=== PATIENT | male | born 1960 | race Caucasian/White ===

== ENCOUNTER 2017-03-01 23:28 | Emergency (ER) | payer MEDICAID ==
[~2017-03-01] VITALS: Ht 175.3 cm; Wt 74.8 kg
[2017-03-01] MEDS ORDERED: ABILIFY2 MG ORAL (23:31)
[2017-03-01] MEDS ORDERED: LISINOPRIL5 MG ORAL (23:31)
--- NOTE | 2017-03-01 23:36 | Emergency Room Report ---
History of Present Illness General Chief Complaint: Abdominal Pain Source: Patient, EMS Present Illness HPI A 56-year-old male who said he has a history of cirrhosis. He said he tripped and fell and twisted his his back and hurt his abdomen. Denies any fever or chills. He call 911 from a nearby restaurant. No other complaint. Pain is 9/ 10. Worse with movement. Allergies: Coded Allergies: No Known Allergies (Unverified , 03/01/17) Patient History Past Medical History: see triage record, old chart reviewed Past Surgical History: other Pertinent Family History: none Social History: Reports: alcohol use Immunizations: other Reviewed Nursing Documentation: PMH: Agreed, PSxH: Agreed Nursing Documentation-PMH Hx Hypertension: Yes Review of Systems Eye: Denies: eye pain, blurred vision ENT: Denies: ear pain, nose congestion, throat swelling Respiratory: Denies: cough, shortness of breath Cardiovascular: Denies: chest pain, palpitations Gastrointestinal: Reports: abdominal pain, Denies: diarrhea, nausea, vomiting Musculoskeletal: Denies: back pain, joint pain Skin: Denies: rash Neurological: Denies: headache, numbness Endocrine: Denies: increased thirst, increased urine Hematologic/Lymphatic: Denies: easy bruising All Other Systems: negative except mentioned in HPI Physical Exam Vital Signs Date Time Temp Pulse Resp B/P (MAP) Pulse Ox O2 Delivery O2 Flow Rate FiO2 03/01/17 23:25 98.2 86 16 142/89 98 Room Air vitals normal Sp02 EP Interpretation: reviewed, normal General Appearance: well appearing, no apparent distress, alert Head: normocephalic, atraumatic Eyes: bilateral eye PERRL, bilateral eye EOMI ENT: hearing grossly normal, normal pharynx Neck: full range of motion, supple, no meningismus Respiratory: chest non-tender, lungs clear, normal breath sounds Cardiovascular #1: regular rate, rhythm, no murmur Gastrointestinal: normal bowel sounds, non tender, no mass, no organomegaly, no bruit, non-distended Musculoskeletal: back normal, gait/station normal, normal range of motion Psychiatric: mood/affect normal Skin: warm/dry Medical Decision Making Diagnostic Impression: Primary Impression: Abdominal pain of unknown etiology ER Course This patient allegedly fell. He showed me an old abrasion on his left wrist and stated that he just fell. He said that he has abdominal pain but abdomen exam is benign. Is soft. CT scan unremarkable. We'll discharge home. On the [facility] system he has multiple prescriptions from different doctors. Patient keep asking for pain medication. I offered Tylenol or Motrin. Refuse. He said he has a prescription for [place]. He said that we can give him [place] we will take anything else. Patient is comfortable eating here. Explained to him that I am not comfortable giving him narcotic in light of his supposedly liver problem. At this point he said he doesn't want to stay anymore. He got up and left. Patient is competent to make that decision. He did get CT scan but reports not back yet. CT/MRI/US Diagnostic Results CT/MRI/US Diagnostic Results : Imaging Test Ordered: CT scan of abdomen and pelvis Impression read by radiologist. no acute process. Last Vital Signs Date Time Temp Pulse Resp B/P (MAP) Pulse Ox O2 Delivery O2 Flow Rate FiO2 03/01/17 23:25 98.2 86 16 142/89 98 Room Air Status: improved Disposition: AGAINST MEDICAL ADVICE Condition: Stable Patient Instructions: Abdominal Pain, Adult Additional Instructions: followup with your DrErnesto in 7 days. Return if worse. PAPI CHRISTIANSON M.D. Mar 01, 2017 23:36
[2017-03-01 23:37] VITALS: BP 142/89
[2017-03-02 00:27] VITALS: BP 142/89
--- NOTE | 2017-03-02 09:34 | Diagnostic Imaging Report ---
Indication: Abdominal pain Technique: Continuous helical transaxial imaging of the abdomen and pelvis was obtained from the lung bases to the pubic symphysis. No intravenous contrast was administered. Coronal 2-D reformats were also obtained. Total Dose length Product (DLP): [address] Dose Index Volume (CTDIvol): 16 mGy Comparison: none Findings: The lung bases are clear. The dome of the liver is not included in the [id number] which is in error. There is calcification in the liver nonspecific. There is a small exophytic lesion demonstrated in the lower pole the left kidney of similar attenuation to the kidney. Suggest correlation with ultrasound. Gallbladder is contracted. No nephrolithiasis demonstrated. Diverticula noted in the colon. Bilateral inguinal hernias containing fat demonstrated. Prostate calcification noted. Appendix is normal. Breathing motion artifact is present. There is no free fluid or free air. Impression: Limited evaluation as discussed above. Calcification in the liver consistent with old granuloma. 1 cm exophytic lesion in the lower pole left kidney. This is indeterminate on the current study is obtained. Suggest ultrasound evaluation. This could be cystic or solid. Diverticulosis of the colon Normal appendix Bilateral inguinal hernias containing fat. The CT scanner at [facility] is accredited by the [employer] and the scans are performed using dose optimization techniques as appropriate to a performed exam including Automatic Exposure control.
== END 2017-03-02 00:27 | disposition left against medical advice (07) ==
LOC: EDBD 23:28 → EMR 23:40
DX: R10.9 Unspecified abdominal pain (principal); W01.0XXA Fall on same level from slipping, tripping and stumbling without subsequent striking against object, initial encounter; Y93.9 Activity, unspecified; Y99.9 Unspecified external cause status; K74.60 Unspecified cirrhosis of liver; Z72.89 Other problems related to lifestyle
CPT/HCPCS: 74176; 99284

== ENCOUNTER 2017-03-06 13:19 | Emergency (ER) | payer MEDICAID ==
[~2017-03-06] VITALS: Ht 175.3 cm; Wt 72.6 kg
[~2017-03-06 13:19] MED LIST: ABILIFY2 MG ORAL; LISINOPRIL5 MG ORAL
[2017-03-06 13:40] VITALS: BP 148/86
--- NOTE | 2017-03-06 14:09 | Emergency Room Report ---
History of Present Illness General Chief Complaint: General Complaint Source: Patient Present Illness HPI Patient presents with weakness and chest pain. He was evaluated for 8 hours at [facility] and discharged. They discharged him with antibiotics for a dental infection and also medicine for pain. He states he still having chest pain at this time and feels he is about to pass out. The pain is rated 3/10, substernal, radiating to back. No cough or wheezing. Also complains of headache and gum pain. Smokes and HTN, no diabetes. Not taking cholesterol medicine. H/O cirrhosis. Denies seizures or ulcers/GI bleeding. Denies alcohol or drugs. Allergies: Coded Allergies: CEPHALEXIN (Verified Allergy, Intermediate, 03/06/17) Patient History Past Medical History: see triage record Social History: Reports: smoking, drug use - see tox Social History Narrative from [place] Reviewed Nursing Documentation: PMH: Agreed, PSxH: Agreed Nursing Documentation-PM Hx Hypertension: Yes History Of Psychiatric Problem: Yes - schizo Review of Systems All Other Systems: negative except mentioned in HPI Physical Exam Vital Signs Date Time Temp Pulse Resp B/P (MAP) Pulse Ox O2 Delivery O2 Flow Rate FiO2 03/06/17 13:16 98.4 82 16 148/86 100 Room Air Sp02 EP Interpretation: reviewed, normal General Appearance: well appearing, no apparent distress, GCS 15 Head: normocephalic Eyes: bilateral eye PERRL, bilateral eye Scleral Injection ENT: moist mucus membranes Neck: supple Respiratory: lungs clear, normal breath sounds Cardiovascular #1: regular rate, rhythm Cardiovascular #2: 2+ radial (R) Gastrointestinal: normal inspection, normal bowel sounds, non tender, no mass, non-distended Musculoskeletal: back normal, gait/station normal, normal range of motion Neurologic: alert, oriented x3, motor strength/tone normal, DTRs symmetric, sensory intact, other - sleepy Psychiatric: no suicidal/homicidal ideation, other - sleepy Skin: normal inspection, warm/dry Medical Decision Making Diagnostic Impression: Primary Impression: Substance abuse Additional Impressions: Chest pain Qualified Codes: R07.9 - Chest pain, unspecified H/O cirrhosis ER Course Patient with HTN and cirrhosis complaining of chest pain. Ddx: AMI, ACS, GERD, costochondritis, pericarditis, Evaluation with EKG, CXR, labs. Treatment with IV hydration and repeat evaluation. Patient given aspirin. EKG as below. CXR no infiltrates. Labs with normal WBC, slight anemia, elevated (min) ALT and CK. INR normal and UA clear except for + amphetamines. Trop and BNP normal. Patient improved and pain free. He states he was mainly tired. He has meds from [employer]. Patient stable for outpatient observation and treatment. Laboratory Tests Test 03/06/17 15:08 03/06/17 16:12 White Blood Count 6.7 K/UL (4.8-10.8) Red Blood Count 3.81 M/UL (4.70-6.10) L Hemoglobin 12.7 G/DL (14.2-18.0) L Hematocrit 35.3 % (42.0-52.0) L Mean Corpuscular Volume 93 FL (80-99) Mean Corpuscular Hemoglobin 33.2 PG (27.0-31.0) H Mean Corpuscular Hemoglobin Concent 35.8 G/DL (32.0-36.0) Red Cell Distribution Width 10.5 % (11.6-14.8) L Platelet Count 190 K/UL (150-450) Mean Platelet Volume 6.2 FL (6.5-10.1) L Neutrophils (%) (Auto) 51.9 % (45.0-75.0) Lymphocytes (%) (Auto) 35.1 % (20.0-45.0) Monocytes (%) (Auto) 9.1 % (1.0-10.0) Eosinophils (%) (Auto) 3.5 % (0.0-3.0) H Basophils (%) (Auto) 0.5 % (0.0-2.0) Prothrombin Time 9.8 SEC (9.30-11.50) Prothrombin Time INR 0.9 (0.9-1.1) PTT 31 SEC (23-33) Sodium Level 142 mEQ/L (135-145) Potassium Level 4.1 mEQ/L (3.4-4.9) Chloride Level 105 mEQ/L (98-107) Carbon Dioxide Level 26 mEQ/L (20-30) Anion Gap 11 (5-15) Blood Urea Nitrogen 24 mg/dL (7-23) H Creatinine 0.9 mg/dL (0.7-1.2) Estimate Glomerular Filtration Rate > 60 mL/min (>60) Glucose Level 106 mg/dL (74-106) Calcium Level 9.1 mg/dL (8.6-10.2) Total Bilirubin 0.8 mg/dL (0.0-1.2) Aspartate Amino Transferase (AST) 26 U/L (5-40) Alanine Aminotransferase (ALT) 44 U/L (3-41) H Alkaline Phosphatase 59 U/L (40-129) Total Creatine Kinase 175 U/L (38-174) H Troponin I < 0.30 ng/mL (<=0.30) Pro-B-Type Natriuretic Peptide 42 pg/mL (0-125) Total Protein 6.4 g/dL (6.6-8.7) L Albumin 3.7 g/dL (3.5-5.2) Globulin 2.7 g/dL Albumin/Globulin Ratio 1.3 (1.0-2.7) Lipase 100 U/L (< 60) H Serum Alcohol < 10 mg/dL Urine Color Pale yellow Urine Appearance Clear Urine pH 5 (4.5-8.0) Urine Specific [place] 1.020 (1.005-1.035) Urine Protein Negative (NEGATIVE) Urine Glucose (UA) Negative (NEGATIVE) Urine Ketones Negative (NEGATIVE) Urine Occult Blood Negative (NEGATIVE) Urine Nitrite Negative (NEGATIVE) Urine Bilirubin Negative (NEGATIVE) Urine Urobilinogen Normal MG/DL (0.0-1.0) Urine Leukocyte Esterase Negative (NEGATIVE) Urine Opiates Screen Positive (NEGATIVE) H Urine Barbiturates Screen Negative (NEGATIVE) Phencyclidine (PCP) Screen Negative (NEGATIVE) Urine Amphetamines Screen Positive (NEGATIVE) H Urine Benzodiazepines Screen Negative (NEGATIVE) Urine Cocaine Screen Negative (NEGATIVE) Urine Marijuana (THC) Screen Negative (NEGATIVE) EKG Diagnostic Results Rate: normal Rhythm: NSR ST Segments: no acute changes Rhythm Strip Diag. Results EP Interpretation: yes Rhythm: NSR, no PVC's, no ectopy Chest X-Ray Diagnostic Results Chest X-Ray Diagnostic Results : Chest X-Ray Ordered: Yes # of Views/Limited/Complete: 1 View Indication: Chest Pain EP Interpretation: Yes Interpretation: no consolidation, no effusion, no pneumothorax, other - increased singh Impression: Other Interpreting ER Provider: signed Hans Mendoza MD Last Vital Signs Date Time Temp Pulse Resp B/P (MAP) Pulse Ox O2 Delivery O2 Flow Rate FiO2 9/4/17 17:10 98.4 69 14 142/73 99 Room Air Status: improved Disposition: HOME, SELF-CARE Condition: Improved Hans Mendoza M.D. Mar 06, 2017 14:09
[2017-03-06 15:36] LABS: BASOPHILS % (AUTO) 0.5 % (0.0-2.0); EOSINOPHILS % (AUTO) 3.5 % (0.0-3.0); LYMPHOCYTES % (AUTO) 35.1 % (20.0-45.0); MEAN CORPUSCULAR HEMOGLOBIN 33.2 PG (27.0-31.0); MEAN CORPUSCULAR HGB CONC 35.8 G/DL (32.0-36.0); MEAN CORPUSCULAR VOLUME 93 FL (80-99); MEAN PLATELET VOLUME 6.2 FL (6.5-10.1); MONOCYTES % (AUTO) 9.1 % (1.0-10.0); NEUTROPHILS % (AUTO) 51.9 % (45.0-75.0); PLATELET COUNT 190 K/UL (150-450); RED BLOOD COUNT 3.81 M/UL (4.70-6.10); RED CELL DISTRIBUTION WIDTH 10.5 % (11.6-14.8); WHITE BLOOD COUNT 6.7 K/UL (4.8-10.8)
[2017-03-06 15:44] LABS: INR 0.9 (0.9-1.1); PROTHROMBIN TIME 9.8 SEC (9.30-11.50)
[2017-03-06 15:56] LABS: TROPONIN I < 0.30 ng/mL (<=0.30)
[2017-03-06 16:23] LABS: APPEARANCE,URINE CLEAR; KETONES,URINE NEGATIVE (NEGATIVE); LEUKOCYTE ESTERASE ,URINE NEGATIVE (NEGATIVE); NITRITE,URINE NEGATIVE (NEGATIVE); PH,URINE 5 (4.5-8.0); PROTEIN,URINE NEGATIVE (NEGATIVE); UROBILINOGEN,URINE NORMAL MG/DL (0.0-1.0)
[2017-03-06 16:36] LABS: ALANINE AMINOTRANSFERASE 44 U/L (3-41); ALBUMIN/GLOBULIN RATIO 1.3 (1.0-2.7); ANION GAP 11 (5-15); ASPARTATE AMINO TRANSFERASE 26 U/L (5-40); CALCIUM 9.1 mg/dL (8.6-10.2); CARBON DIOXIDE 26 mEQ/L (20-30); CHLORIDE 105 mEQ/L (98-107); CREATININE 0.9 mg/dL (0.7-1.2); GLOMERULAR FILTRATION RATE > 60 mL/min (>60); HEMOLYSIS 8; LIPASE 100 U/L (< 60); POTASSIUM 4.1 mEQ/L (3.4-4.9); SODIUM 142 mEQ/L (135-145); TOTAL PROTEIN 6.4 g/dL (6.6-8.7)
[2017-03-06 17:00] VITALS: BP 142/73
[2017-03-06 17:10] VITALS: BP 142/73
--- NOTE | 2017-03-07 11:51 | Diagnostic Imaging Report ---
Indication: Dyspnea Comparison: None A single view chest radiograph was obtained. Findings: Possible mild interstitial edema is present. Heart size is normal. The bones are unremarkable. Please correlate clinically. Impression: Query mild interstitial edema
--- NOTE | 2017-03-08 16:33 | Cardiology Report ---
APPROVED REPORT EKG Measurement Heart [id number] Normal sinus rhythm Normal ECG
== END 2017-03-06 17:10 | disposition home or self-care (01) ==
LOC: EDBD 13:19 → EMR 16:12
DX: F19.10 Other psychoactive substance abuse, uncomplicated (principal); R07.9 Chest pain, unspecified; K74.60 Unspecified cirrhosis of liver; R51 Headache; K08.89 Other specified disorders of teeth and supporting structures; F17.200 Nicotine dependence, unspecified, uncomplicated; I10 Essential (primary) hypertension; Z88.8 Allergy status to other drugs, medicaments and biological substances; F20.9 Schizophrenia, unspecified
CPT/HCPCS: 36415; 71010; 80053; 80300; 80329; 81003; 82550; 83690; 83880; 84484; 85025; 85610; 85730; 93005; 99284